=== PATIENT | female | born 1960 | race Caucasian/White ===

== ENCOUNTER 2020-03-24 14:54 | Day surgery (SDC) | payer MEDICARE | END 2020-03-24 16:10 | LOC: SDC-PAIN 14:54 | PROVIDERS: ATTEND Psychiatry & Neurology Pain Medicine | DX: Z53.09 Procedure and treatment not carried out because of other contraindication (principal); E11.9 Type 2 diabetes mellitus without complications; I10 Essential (primary) hypertension | CPT/HCPCS: 82947; 82962; G0463 ==

== ENCOUNTER 2020-03-24 16:11 | Emergency (ER) | payer MEDICARE ==
[2020-03-24] MEDS ORDERED: Sodium Chloride 0.9% 1000 ML 1,000 ML IV STA (16:58)
[2020-03-24 17:05] LABS: Hematocrit 38.6 % (35-47); Mean Cell Volume 98.5 fl (78-100); Mean Corpuscular Hemoglobin 33.2 pg (26-32); Mean Corpuscular Hgb Concent. 33.7 g/dl (32-36); Platelet Count 383 K/mm3 (150-450); Red Blood Count 3.92 M/mm3 (4.1-5.4); White Blood Count 8.1 K/mm3 (4.0-10.5)
[2020-03-24] MEDS ORDERED: Sodium Chloride 0.9% 1000 ML 1,000 ML ONE (17:11)
[2020-03-24 17:15] LABS: ALKALINE PHOSPHATASE 85 U/L (38-126); ANION GAP 9.5 MEQ/L (5-15); BLOOD UREA NITROGEN 29 mg/dL (7-17); CHLORIDE 97 mmol/L (98-107); Calcium 9.1 mg/dL (8.4-10.2); Carbon Dioxide 31 mmol/L (22-30); Creatinine 1 0.75 mg/dL (0.52-1.04); EST GLOMERULAR FILTRATION RATE > 60.0 ML/MIN; Glucose 447 mg/dL (74-106); MAGNESIUM 1.8 mg/dL (1.6-2.3); Potassium 3.7 mmol/L (3.5-5.1); SGOT/AST 25 U/L (14-36); SGPT/ALT 26 U/L (0-35); SODIUM 134 mmol/L (137-145); Total Protein 6.8 g/dL (6.3-8.2)
--- NOTE | 2020-03-24 17:57 | ERPHSYRPT ---
- History of Present Illness Time Seen by Provider: 03/24/20 16:29 Source: patient Exam Limitations: no limitations Patient Subjective Stated Complaint: Pt states "I went to get an injection in my back and they said my sugar was to high to do it and told me to come here." Triage Nursing Assessment: Pt presented alert and oriented X 3, skin pwd Pt ambulates with an upright steady gait, able to speak in clear full sentences pt in no apparent respiratory distress. 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 And also gets her epidural injection for her low back pain. Today she went to get her epidural injection and they found that her sugar was high so they sent her here to be checked out. Patient is otherwise asymptomatic. The patient has a Metformin but does not take it because it makes her nauseated. Timing/Duration: today Severity: moderate Modifying Factors: Improves With: other (Taking medication and also taking the steroid) Associated Symptoms: other (Low back pain) Allergies/Adverse Reactions: acetaminophen [From Percocet] Adverse Reaction (Mild, Verified 03/24/20 16:31) sick oxycodone [From Percocet] Adverse Reaction (Mild, Verified 03/24/20 16:31) sick Home Medications: Atorvastatin Calcium [Lipitor] 40 mg PO DAILY 03/24/20 [History] Duloxetine HCl 60 mg PO DAILY 03/24/20 [History] Levothyroxine Sodium 125 mcg PO DAILY 03/24/20 [History] Methylprednisolone 4 mg [Medrol 4 mg] 4 mg PO HS 03/24/20 [History] Metoprolol Succinate 50 mg PO DAILY 03/24/20 [History] Omeprazole 40 mg PO DAILY 03/24/20 [History] Upadacitinib [Rinvoq] 15 mg PO DAILY 03/24/20 [History] lisinopriL [Lisinopril] 20 mg PO DAILY 03/24/20 [History] Hx Tetanus, Diphtheria Vaccination/Date Given: No Hx Influenza Vaccination/Date Given: No Hx Pneumococcal Vaccination/Date Given: No Immunizations Up to Date: Yes Travel Risk - International Travel Have you traveled outside of the country in past 3 weeks: No - Coronavirus Screening Are you exhibiting any of the following symptoms?: No Close contact with a COVID-19 positive Pt in past 14-21 Days: No - Review of Systems Constitutional: No Fever, No Chills Eyes: No Symptoms Ears, Nose, & Throat: No Symptoms Respiratory: No Cough, No Dyspnea Cardiac: No Chest Pain, No Edema, No Syncope Abdominal/Gastrointestinal: No Abdominal Pain, No Nausea, No Vomiting, No Diarr hea Genitourinary Symptoms: No Dysuria Musculoskeletal: Back Pain, No Neck Pain Skin: No Symptoms, No Rash Neurological: No Dizziness, No Focal Weakness, No Sensory Changes Psychological: No Symptoms Endocrine: No Symptoms All Other Systems: Reviewed and Negative - Past Medical History Pertinent Past Medical History: Yes Neurological History: No Pertinent History ENT History: No Pertinent History Cardiac History: High Cholesterol, Hypertension Respiratory History: No Pertinent History Endocrine Medical History: Diabetes Type II, Liver Disease, Thyroid Cancer Musculoskeletal History: Arthritis, Fibromyalgia GI Medical History: GERD, Gallbladder Disease History: No Pertinent History Psycho-Social History: Depression Female Reproductive Disorders: Endometriosis - Past Surgical History Past Surgical History: Yes Other Surgical History: c section. moy. hysterectomy. GI scope - Social History Smoking Status: Never smoker Exposure to second hand smoke: Yes Drug Use: none Patient Lives Alone: No - Female History Hx Now: No - Nursing Vital Signs Nursing Vital Signs: Initial Vital Signs Temperature 98.2 F 03/24/20 16:24 Pulse Rate 61 03/24/20 16:24 Respiratory Rate 20 03/24/20 16:24 Blood Pressure 185/97 03/24/20 16:24 O2 Sat by Pulse Oximetry 98 03/24/20 16:24 Pain Scale Pain Intensity 5 - Physical Exam General Appearance: no apparent distress, alert Eye Exam: PERRL/EOMI, eyes nml inspection Ears, Nose, Throat Exam: normal ENT inspection, TMs normal, pharynx normal, moist mucous membranes Neck Exam: normal inspection, non-tender, supple, full range of motion Respiratory Exam: normal breath sounds, lungs clear, No respiratory distress Cardiovascular Exam: regular rate/rhythm, normal heart sounds, normal peripheral pulses Gastrointestinal/Abdomen Exam: soft, normal bowel sounds, No tenderness, No mass Back Exam: normal inspection, normal range of motion, No CVA tenderness, No vertebral tenderness Extremity Exam: normal inspection, normal range of motion, pelvis stable Neurologic Exam: alert, oriented x 3, cooperative, normal mood/affect, nml cerebellar function, nml station & gait, sensation nml, No motor deficits Skin Exam: normal color, warm, dry, No rash Lymphatic Exam: No adenopathy SpO2 Interpretation: normal SpO2: 98 O2 Delivery: Room Air - Course Nursing assessment & vital signs reviewed: Yes EKG Interpreted by Me: RATE ([id number]), NORMAL AXIS, NORMAL INTERVALS, NORMAL QRS, NORMAL ST-T Ordered Tests: Active Orders 24 hr Category Date Time Status EKG-ER Only STAT Care 03/24/20 16:59 Active IV Insertion STAT Care 03/24/20 16:58 Active POCT Glucose Check STAT Care 03/24/20 16:58 Active CBC W DIFF Stat Lab 03/24/20 16:58 Completed CMP Stat Lab 03/24/20 16:58 Completed CULTURE,URINE Stat Lab 03/24/20 17:13 Received MAGNESIUM Stat Lab 03/24/20 16:58 Completed Manual Differential NC Stat Lab 03/24/20 16:58 Completed POCT GLUCOSE Stat Lab 03/24/20 16:40 Completed TROPONIN Stat Lab 03/24/20 17:00 Completed UA W/RFX UR CULTURE Stat Lab 03/24/20 17:13 Completed Medication Summary Discontinued Medications Generic Name Dose Route Start Last Admin Trade Name Freq PRN Reason Stop Dose Admin Sodium Chloride 1,000 mls @ 999 mls/hr 03/24/20 16:58 03/24/20 18:24 Sodium Chloride 0.9% 1000 Ml IV 03/24/20 17:58 Infused .Q1H1M STA Infusion Sodium Chloride Confirm 03/24/20 17:11 Sodium Chloride 0.9% 1000 Ml Administered 03/24/20 17:12 Dose 1,000 mls @ ud .ROUTE .K-MED ONE Lab/Rad Data: Laboratory Result Diagrams 03/24/20 16:58 03/24/20 16:58 Laboratory Results 03/24/20 03/24/20 03/24/20 Range/Units 17:13 17:00 16:58 WBC (4.0-10.5) K/mm3 RBC (4.1-5.4) M/mm3 Hgb (12.0-16.0) gm/dl Hct (35-47) % MCV (78-100) fl MCH (26-32) pg MCHC (32-36) g/dl RDW (11.5-14.0) % Plt Count (150-450) K/mm3 MPV (7.5-11.0) fl Sodium 134 L (137-145) mmol/L Potassium 3.7 (3.5-5.1) mmol/L Chloride 97 L (98-107) mmol/L Carbon Dioxide 31 H (22-30) mmol/L Anion Gap 9.5 (5-15) MEQ/L BUN 29 H (7-17) mg/dL Creatinine 0.75 (0.52-1.04) mg/dL Estimated GFR > 60.0 ML/MIN Glucose 447 H (74-106) mg/dL POC Glucometer (74 to 106) mg/dL Calcium 9.1 (8.4-10.2) mg/dL Magnesium 1.8 (1.6-2.3) mg/dL Total Bilirubin 0.50 (0.2-1.3) mg/dL AST 25 (14-36) U/L ALT 26 (0-35) U/L Alkaline Phosphatase 85 (38-126) U/L Troponin I < 0.012 (0.000-0.034) ng/mL Serum Total Protein 6.8 (6.3-8.2) g/dL Albumin 4.0 (3.5-5.0) g/dL Urine Color YELLOW (YELLOW) Urine Appearance SLIGHTLY CLOUDY (CLEAR) Urine pH 5.0 (5-6) Ur Specific [place] 1.032 (1.005-1.025) Urine Protein NEGATIVE (Negative) Urine Ketones NEGATIVE (NEGATIVE) Urine Blood NEGATIVE (0-5) Raul/ul Urine Nitrite NEGATIVE (NEGATIVE) Urine Bilirubin SMALL (NEGATIVE) Urine Urobilinogen 4 (0-1) mg/dL Ur Leukocyte Esterase SMALL (NEGATIVE) Urine WBC (Auto) 26-50 (0-5) /HPF Urine RBC (Auto) 6-10 (0-2) /HPF U Epithel Cells (Auto) RARE (FEW) /HPF Urine Bacteria (Auto) FEW (NEGATIVE) /HPF Urine Mucus (Auto) SLIGHT (NEGATIVE) /HPF Urine Yeast (Budding) Many (NEGATIVE) /HPF Urine Culture Reflexed YES (NO) Urine Glucose >=500 (NEGATIVE) mg/dL 03/24/20 03/24/20 Range/Units 16:58 16:40 WBC 8.1 (4.0-10.5) K/mm3 RBC 3.92 L (4.1-5.4) M/mm3 Hgb 13.0 (12.0-16.0) gm/dl Hct 38.6 (35-47) % MCV 98.5 (78-100) fl MCH 33.2 H (26-32) pg MCHC 33.7 (32-36) g/dl RDW 12.0 (11.5-14.0) % Plt Count 383 (150-450) K/mm3 MPV 10.0 (7.5-11.0) fl Sodium (137-145) mmol/L Potassium (3.5-5.1) mmol/L Chloride (98-107) mmol/L Carbon Dioxide (22-30) mmol/L Anion Gap (5-15) MEQ/L BUN (7-17) mg/dL Creatinine (0.52-1.04) mg/dL Estimated GFR ML/MIN Glucose (74-106) mg/dL POC Glucometer 345 H (74 to 106) mg/dL Calcium (8.4-10.2) mg/dL Magnesium (1.6-2.3) mg/dL Total Bilirubin (0.2-1.3) mg/dL AST (14-36) U/L ALT (0-35) U/L Alkaline Phosphatase (38-126) U/L Troponin I (0.000-0.034) ng/mL Serum Total Protein (6.3-8.2) g/dL Albumin (3.5-5.0) g/dL Urine Color (YELLOW) Urine Appearance (CLEAR) Urine pH (5-6) Ur Specific [place] (1.005-1.025) Urine Protein (Negative) Urine Ketones (NEGATIVE) Urine Blood (0-5) Raul/ul Urine Nitrite (NEGATIVE) Urine Bilirubin (NEGATIVE) Urine Urobilinogen (0-1) mg/dL Ur Leukocyte Esterase (NEGATIVE) Urine WBC (Auto) (0-5) /HPF Urine RBC (Auto) (0-2) /HPF U Epithel Cells (Auto) (FEW) /HPF Urine Bacteria (Auto) (NEGATIVE) /HPF Urine Mucus (Auto) (NEGATIVE) /HPF Urine Yeast (Budding) (NEGATIVE) /HPF Urine Culture Reflexed (NO) Urine Glucose (NEGATIVE) mg/dL - Progress Progress: improved, re-examined Progress Note: 03/24/20 18:41 Patient states I am feeling fine and I want to go home. The repeat the blood sugar is 345. Patient says that she will resume taking her diabetes medicine. She also takes a blood pressure medicine but blood pressure was high here so I gave her 0.1 clonidine here. Patient told me that she will call her PCP in the morning and see the PCP as soon as possible. Acute life or limb threatening condition on discharge. Counseled pt/family regarding: lab results, diagnosis, need for follow-up - Departure Departure Disposition: Home Clinical Impression: Hyperglycemia due to diabetes mellitus, Essential hypertension UTI (urinary tract infection) Qualifiers: Urinary tract infection type: site unspecified Hematuria presence: without hematuria Qualified Code(s): N39.0 - Urinary tract infection, site not specified Condition: Good Critical Care Time: No Referrals: DOCTOR,NO FAMILY [Primary Care Provider] - Follow Up with PCP Prescriptions: Ondansetron ODT 4 MG [Zofran Odt 4 mg] 4 mg PO Q6H PRN PRN #10 tab.rapdis PRN Reason: Nausea Smz/Tmp Ds Tablet [Bactrim Ds Tablet] 1 udtab PO BID #14 tablet
[2020-03-24 18:14] LABS: Appearance SLIGHTLY CLOUDY (CLEAR); Bacteria FEW /HPF (NEGATIVE); Bilirubin SMALL (NEGATIVE); Blood NEGATIVE Ery/ul (0-5); Epithelial Cells RARE /HPF (FEW); Glucose >=500 mg/dL (NEGATIVE); Ketones NEGATIVE (NEGATIVE); Leukocyte Esterase SMALL (NEGATIVE); Mucus SLIGHT /HPF (NEGATIVE); Nitrite NEGATIVE (NEGATIVE); Protein,Urine Dip NEGATIVE (Negative); Specific Gravity 1.032 (1.005-1.025); Urobilinogen 4 mg/dL (0-1); WBC 26-50 /HPF (0-5)
[2020-03-24 18:16] LABS: Budding Yeast Many /HPF (NEGATIVE)
[2020-03-24] MEDS ORDERED: Catapres 0.1 MG PO ONE (18:38)
[2020-03-24] MEDS ORDERED: ZOFRAN ODT 4 MG PO ONE (18:38)
[2020-03-24] MEDS ORDERED: BACTRIM DS TABLET PO STA (18:38)
[2020-03-24] MEDS ORDERED: Catapres 0.1 MG ONE (18:49)
[2020-03-24] MEDS ORDERED: BACTRIM DS TABLET PO ONE (18:49)
[2020-03-24] MEDS ORDERED: ZOFRAN ODT 4 MG ONE (18:50)
[2020-03-24] MEDS ORDERED: Glucophage 500 MG ONE (18:56)
[2020-03-24 19:32] VITALS: BP 160/70; PULSE 62; O2SAT 96
[2020-03-24 22:06] LABS: Lymphocytes 36 % (24-44); Monocyte 6 % (0.0-12.0); Neutrophils 58 % (36.0-66.0); Platelet Estimate NORMAL (NORMAL); Total Cells Counted 100
[2020-03-25] MEDS ORDERED: Glucophage 500 MG PO SCH (08:00)
== END 2020-03-24 19:35 | disposition home or self-care (01) ==
LOC: ED 16:11
DX: E11.65 Type 2 diabetes mellitus with hyperglycemia (principal); I10 Essential (primary) hypertension; N39.0 Urinary tract infection, site not specified; E78.00 Pure hypercholesterolemia, unspecified; Z85.850 Personal history of malignant neoplasm of thyroid; Z79.899 Other long term (current) drug therapy
CPT/HCPCS: 36000; 36415; 80053; 81001; 82947; 83735; 84484; 85025; 87086; 93005; 99284; Q0162; A9270-GY

== ENCOUNTER 2020-04-21 13:30 | Day surgery (SDC) | payer MEDICARE ==
[2020-04-21] MEDS ORDERED: Depo-Medrol 40 MG/ML IM ONE (13:31)
[2020-04-21] MEDS ORDERED: Sodium Chloride 0.9(Preservative Free) 10 ML IJ ONE (13:31)
[2020-04-21] MEDS ORDERED: Xylocaine 1% Vial 30 ML PF IJ ONE (13:31)
[2020-04-21] MEDS ORDERED: Lactated Ringers 1,000 ML IV ONE (16:10)
--- NOTE | 2020-04-21 16:45 | XRAY ---
Indication: Lumbar JOSE. Intraoperative fluoroscopy was provided for 15 seconds. 2 digital spot images submitted for interpretation demonstrates midline posterior needle tip projecting just posterior to the L3-L4 interspace. Small amount of contrast injected for needle tip placement. Correlate with intraoperative findings/report.
--- NOTE | 2020-04-21 17:26 | XRAY ---
15 seconds fluoroscopy time in surgery for lumbar JOSE.
== END 2020-04-21 16:31 | disposition home or self-care (01) ==
LOC: SDC-PAIN 13:30
PROVIDERS: ATTEND Psychiatry & Neurology Pain Medicine
DX: M54.16 Radiculopathy, lumbar region (principal); E11.9 Type 2 diabetes mellitus without complications; I10 Essential (primary) hypertension; E03.9 Hypothyroidism, unspecified; Z79.899 Other long term (current) drug therapy
CPT/HCPCS: 62323; 72100; 77003; 82947; 82962; J1030; J2001; Q9966

== ENCOUNTER 2021-02-16 11:05 | Day surgery (SDC) | payer MEDICARE ==
[2021-02-16] MEDS ORDERED: Depo-Medrol 40 MG/ML IM ONE (11:06)
[2021-02-16] MEDS ORDERED: Sodium Chloride 0.9(Preservative Free) 10 ML IJ ONE (11:06)
[2021-02-16] MEDS ORDERED: DIPRIVAN 200 MG/20 ML IV ONE (12:52)
--- NOTE | 2021-02-16 15:12 | XRAY ---
Indication: Right L4-S1 transforaminal JOSE. Intraoperative fluoroscopy provided for 27 seconds. 3 digital spot images submitted for interpretation demonstrates posterior needle tips projecting over the expected right L4 and L5 nerve roots. Small amount of contrast injected for needle tip placement. Correlate with intraoperative findings/report.
--- NOTE | 2021-02-16 16:31 | XRAY ---
27 seconds of fluoroscopy was used in surgery for a right L4-S1 transforaminal JOSE.
[2021-02-16] MEDS ORDERED: Lactated Ringers 1,000 ML IV ONE (17:27)
== END 2021-02-16 13:20 | disposition home or self-care (01) ==
LOC: SDC-PAIN 11:05
PROVIDERS: ATTEND Psychiatry & Neurology Pain Medicine
DX: M54.16 Radiculopathy, lumbar region (principal); E11.9 Type 2 diabetes mellitus without complications; Z79.899 Other long term (current) drug therapy
CPT/HCPCS: 64483; 64484; 72100; 77003; 82947; J1030; J2704; Q9966

== ENCOUNTER 2021-04-06 08:46 | Day surgery (SDC) | payer MEDICARE ==
[2021-04-06] MEDS ORDERED: Sodium Chloride 0.9% 10 ML FLUSH Syringe IJ ONE (08:47)
[2021-04-06] MEDS ORDERED: Depo-Medrol 40 MG/ML IM ONE (08:47)
[2021-04-06] MEDS ORDERED: Xylocaine 1% Vial 30 ML PF IJ ONE (08:47)
[2021-04-06] MEDS ORDERED: Lactated Ringers 1,000 ML IV ONE (09:22)
[2021-04-06] MEDS ORDERED: DIPRIVAN 200 MG/20 ML IV ONE (10:03)
[2021-04-06] MEDS ORDERED: Xylocaine-Mpf 2% 5 Ml Vial ONE (10:14)
--- NOTE | 2021-04-06 12:37 | XRAY ---
Indication: Caudal JOSE. Intraoperative fluoroscopy provided for 17 seconds. 4 digital spot images submitted for interpretation demonstrates posterior collateral needle tip projecting mid sacrum. Small amount of contrast injected for needle tip placement. Correlate with intraoperative findings/report.
--- NOTE | 2021-04-06 12:40 | XRAY ---
17 seconds fluoroscopy time in surgery for caudal JOSE.
== END 2021-04-06 10:40 | disposition home or self-care (01) ==
LOC: SDC-PAIN 08:46
PROVIDERS: ATTEND Psychiatry & Neurology Pain Medicine
DX: M54.16 Radiculopathy, lumbar region (principal); Z79.891 Long term (current) use of opiate analgesic; E11.8 Type 2 diabetes mellitus with unspecified complications
CPT/HCPCS: 62323; 72220; 77003; 82947; J1030; J2001; J2704; Q9966

== ENCOUNTER 2021-05-11 11:54 | Day surgery (SDC) | payer MEDICARE ==
[2021-05-11] MEDS ORDERED: LIDOCAINE HCL 2% 100 MG/5 ML IJ ONE (11:55)
[2021-05-11] MEDS ORDERED: APRESOLINE 20 MG/ML INJ ONE (13:36)
[2021-05-11] MEDS ORDERED: Lactated Ringers 1,000 ML IV ONE (14:14)
[2021-05-11] MEDS ORDERED: DIPRIVAN 200 MG/20 ML IV ONE (14:20)
[2021-05-11] MEDS ORDERED: LOPRESSOR 5 MG/5 ML INJECTION IV ONE (14:25)
--- NOTE | 2021-05-11 16:45 | XRAY ---
Indication: Bilateral L4-S1 MBB. Intraoperative fluoroscopy provided for 10 seconds. Single digital spot image submitted for interpretation demonstrates posterior needle tips projecting over the expected left and right L4-S1 nerve roots. Correlate with intraoperative findings/report.
--- NOTE | 2021-05-11 16:50 | XRAY ---
10 seconds of fluoroscopy was used in surgery for a bilateral L4-S1 MBB.
== END 2021-05-11 14:45 | disposition home or self-care (01) ==
LOC: SDC-PAIN 11:54
PROVIDERS: ATTEND Psychiatry & Neurology Pain Medicine
DX: M47.816 Spondylosis without myelopathy or radiculopathy, lumbar region (principal); E11.9 Type 2 diabetes mellitus without complications; I10 Essential (primary) hypertension; Z79.899 Other long term (current) drug therapy
CPT/HCPCS: 64493; 64494; 72020; 77002; 82947; J0360; J2704

== ENCOUNTER 2021-10-26 10:37 | Day surgery (SDC) | payer MEDICARE ==
[2021-10-26] MEDS ORDERED: XYLOCAINE-MPF 1% 5ML SDV IJ ONE (10:38)
[2021-10-26] MEDS ORDERED: Sodium Chloride 0.9(Preservative Free) 10 ML IJ ONE (10:38)
[2021-10-26] MEDS ORDERED: Depo-Medrol 40 MG/ML IM ONE (10:38)
[2021-10-26] MEDS ORDERED: DIPRIVAN 200 MG/20 ML IV ONE (12:04)
[2021-10-26] MEDS ORDERED: Lactated Ringers 1,000 ML IV ONE (12:55)
--- NOTE | 2021-10-26 13:21 | XRAY ---
23 seconds fluoroscopy time in surgery for lumber JOSE.
--- NOTE | 2021-10-26 13:22 | XRAY ---
Indication: Lumbar JOSE. Intraoperative fluoroscopy provided for 23 seconds. 3 digital spot image submitted for interpretation demonstrates midline posterior needle tip projecting just posterior to L4-L5 interspace. Small amount of contrast was injected for needle tip placement. Correlate with intraoperative findings/report.
== END 2021-10-26 12:33 | disposition home or self-care (01) ==
LOC: SDC-PAIN 10:37
PROVIDERS: ATTEND Psychiatry & Neurology Pain Medicine
DX: M54.16 Radiculopathy, lumbar region (principal); E11.9 Type 2 diabetes mellitus without complications; Z79.899 Other long term (current) drug therapy
CPT/HCPCS: 62323; 72100; 77003; 82947; J1030; J2704; Q9966

== ENCOUNTER 2022-01-11 10:21 | Day surgery (SDC) | payer MEDICARE ==
[2022-01-11] MEDS ORDERED: Marcaine Mpf 0.5% Vial 30 Ml IJ ONE (10:22)
[2022-01-11] MEDS ORDERED: DIPRIVAN 200 MG/20 ML IV ONE (11:22)
[2022-01-11] MEDS ORDERED: Lactated Ringers 1,000 ML IV ONE (13:06)
--- NOTE | 2022-01-11 17:24 | XRAY ---
Indication: Bilateral L4-S1 MBB. Intraoperative fluoroscopy provided for 14 seconds. Single digital spot image submitted for interpretation demonstrates posterior needle tips projecting over the expected left and right L4-S1 nerve roots. Correlate with intraoperative findings/report.
--- NOTE | 2022-01-11 17:46 | XRAY ---
14 seconds fluoroscopy time in surgery for bilateral L4-S1 MBB.
== END 2022-01-11 11:45 | disposition home or self-care (01) ==
LOC: SDC-PAIN 10:21
PROVIDERS: ATTEND Psychiatry & Neurology Pain Medicine
DX: M47.816 Spondylosis without myelopathy or radiculopathy, lumbar region (principal); E11.9 Type 2 diabetes mellitus without complications; Z79.899 Other long term (current) drug therapy
CPT/HCPCS: 64493; 64494; 72020; 77002; 82947; J2704

== ENCOUNTER 2022-02-15 09:07 | Day surgery (SDC) | payer MEDICARE ==
[2022-02-15] MEDS ORDERED: Marcaine Mpf 0.5% Vial 30 Ml IJ ONE (09:08)
[2022-02-15] MEDS ORDERED: Depo-Medrol 40 MG/ML IM ONE (09:08)
[2022-02-15] MEDS ORDERED: XYLOCAINE-MPF 1% 5ML SDV IJ ONE (09:08)
[2022-02-15] MEDS ORDERED: Versed 2 MG/2 ML Injection ONE (09:24)
[2022-02-15] MEDS ORDERED: DIPRIVAN 200 MG/20 ML IV ONE (10:01)
[2022-02-15] MEDS ORDERED: Lactated Ringers 1,000 ML IV ONE (10:14)
--- NOTE | 2022-02-15 19:14 | XRAY ---
Indication: Right L4-S1 RFA. Intraoperative fluoroscopy provided for 24 seconds. 3 digital spot image submitted for interpretation demonstrates posterior needle tips projecting over the expected right L4-S1 nerve roots. Correlate with intraoperative findings/report.
== END 2022-02-15 10:55 | disposition home or self-care (01) ==
LOC: SDC-PAIN 09:07
PROVIDERS: ATTEND Psychiatry & Neurology Pain Medicine
DX: M47.16 Other spondylosis with myelopathy, lumbar region (principal); E11.9 Type 2 diabetes mellitus without complications; Z79.899 Other long term (current) drug therapy
CPT/HCPCS: 64635; 64636; 72100; 77002; 82947; J1030; J2250; J2704

== ENCOUNTER 2022-02-22 09:13 | Day surgery (SDC) | payer MEDICARE ==
[2022-02-22] MEDS ORDERED: Depo-Medrol 40 MG/ML IM ONE (09:14)
[2022-02-22] MEDS ORDERED: XYLOCAINE-MPF 1% 5ML SDV IJ ONE (09:14)
[2022-02-22] MEDS ORDERED: Marcaine Mpf 0.5% Vial 30 Ml IJ ONE (09:14)
[2022-02-22] MEDS ORDERED: Lactated Ringers 1,000 ML IV ONE (10:20)
[2022-02-22] MEDS ORDERED: DIPRIVAN 200 MG/20 ML IV ONE (10:46)
--- NOTE | 2022-02-22 12:24 | XRAY ---
Indication: Left L4-S1 RFA. Intraoperative fluoroscopy provided for 20 seconds. 3 digital spot image submitted for interpretation demonstrates posterior needle tips projecting over the expected left L4-S1 nerve roots. Correlate with intraoperative findings/report.
--- NOTE | 2022-02-22 13:23 | XRAY ---
20 seconds of fluoroscopy was used in surgery for a left L4-S1 RFA.
== END 2022-02-22 11:15 | disposition home or self-care (01) ==
LOC: SDC-PAIN 09:13
PROVIDERS: ATTEND Psychiatry & Neurology Pain Medicine
DX: M47.816 Spondylosis without myelopathy or radiculopathy, lumbar region (principal); E11.9 Type 2 diabetes mellitus without complications; Z79.899 Other long term (current) drug therapy
CPT/HCPCS: 64635; 64636; 72100; 77002; 82947; J1030; J2704

== ENCOUNTER 2022-03-22 11:29 | Day surgery (SDC) | payer MEDICARE ==
[2022-03-22] MEDS ORDERED: Decadron 4 MG INJ IV ONE (11:30)
[2022-03-22] MEDS ORDERED: Xylocaine 1% Vial 30 ML PF IJ ONE (11:30)
[2022-03-22] MEDS ORDERED: DIPRIVAN 200 MG/20 ML IV ONE (12:07)
[2022-03-22] MEDS ORDERED: Lactated Ringers 1,000 ML IV ONE (13:36)
--- NOTE | 2022-03-22 14:26 | XRAY ---
Indication: Bilateral piriformis muscle injection. Intraoperative fluoroscopy provided for 15 seconds. 2 digital spot image submitted for interpretation demonstrates posterior needle tip projecting over the expected left and right piriformis muscles. Small amount of contrast injected for needle tip placement. Correlate with intraoperative findings/report.
--- NOTE | 2022-03-22 14:35 | XRAY ---
15 seconds fluoroscopy time in surgery for bilateral piriformis muscle injections.
== END 2022-03-22 13:04 | disposition home or self-care (01) ==
LOC: SDC-PAIN 11:29
PROVIDERS: ATTEND Psychiatry & Neurology Pain Medicine
DX: M79.18 Myalgia, other site (principal); E11.9 Type 2 diabetes mellitus without complications; Z79.899 Other long term (current) drug therapy
CPT/HCPCS: 20553; 72170; 77002; 82947; J1100; J2001; J2704; Q9966

== ENCOUNTER 2023-05-09 09:32 | Day surgery (SDC) | payer MEDICARE ==
[2023-05-09] MEDS ORDERED: XYLOCAINE-MPF 1% 5ML SDV IJ ONE (09:33)
[2023-05-09] MEDS ORDERED: Sodium Chloride 0.9(Preservative Free) 10 ML IJ ONE (09:33)
[2023-05-09] MEDS ORDERED: Depo-Medrol 40 MG/ML IM ONE (09:33)
[2023-05-09] MEDS ORDERED: DIPRIVAN 200 MG/20 ML IV ONE (11:03)
[2023-05-09] MEDS ORDERED: Lactated Ringers 1,000 ML IV ONE (11:19)
--- NOTE | 2023-05-09 12:17 | XRAY ---
Indication: Lumbar JOSE. Intraoperative fluoroscopy provided for 11 seconds. 2 digital spot image submitted for interpretation demonstrates posterior needle tip projecting posterior to lumbosacral junction. Small amount of contrast injected for needle tip placement. Correlate with intraoperative findings/report.
--- NOTE | 2023-05-09 12:21 | XRAY ---
11 seconds of fluoroscopy was used in surgery for a lumbar JOSE.
== END 2023-05-09 11:28 | disposition home or self-care (01) ==
LOC: SDC-PAIN 09:32
PROVIDERS: ATTEND Psychiatry & Neurology Pain Medicine
DX: M54.16 Radiculopathy, lumbar region (principal); E11.9 Type 2 diabetes mellitus without complications; Z79.899 Other long term (current) drug therapy
CPT/HCPCS: 62323; 72100; 77003; 82947; J1030; J2704; Q9966